=== PATIENT | male | born 1940 | race Caucasian/White ===

== ENCOUNTER 2016-08-19 10:16 | Emergency (ER) | payer MEDICARE, OTHER ==
[2016-08-19 10:47] LABS: BASOPHIL# 0.1 X 10^3uL (0.0-0.1); BASOPHILS 0.8 % (0.0-2.0); EOSINOPHILS 2.2 % (0.0-6.0); EOSINOPHILS# 0.1 X 10^3uL (0.0-0.4); HEMATOCRIT 48.7 % (42.0-54.0); HEMOGLOBIN 16.9 g/dL (14.0-18.0); MEAN CELL VOLUME 92.3 fL (80.0-100.0); MEAN CORPUS. HGB CONCENTRATION 34.6 g/dL (32.0-36.0); MEAN PLATELET VOLUME 9.6 fL (7.4-10.4); MONOCYTES 8.3 % (2.0-10.0); MONOCYTES# 0.5 X 10^3uL (0.2-1.0); NEUTROPHILS 73.7 % (54.0-75.0); NEUTROPHILS# 4.8 X 10^3uL (2.6-6.7); PLATELET COUNT 214 X 10^3uL (130-440); RED BLOOD COUNT 5.28 X 10^6uL (4.20-6.10); RED CELL DISTRIBUTION WIDTH 13.3 % (11.5-14.5); WHITE BLOOD COUNT 6.4 X 10^3uL (3.9-10.7)
[2016-08-19] MEDS ORDERED: FUROSEMIDE 20 MG/2 ML VIAL ONE (10:54)
[2016-08-19 10:58] LABS: BLOOD UREA NITROGEN 20 mg/dL (9-20); CALCIUM 9.3 mg/dL (8.4-10.2); CHLORIDE 106 mmol/L (98-107); EST GLOMERULAR FILTRATION RATE > 60 mL/min; GLUCOSE 134 mg/dL (70-100); POTASSIUM 3.7 mmol/L (3.5-5.1); SODIUM 143 mmol/L (137-145)
[2016-08-19 11:10] LABS: TROPONIN I < 0.012 ng/mL (0.00-0.034)
--- NOTE | 2016-08-19 11:47 | ER NURSING DOCUMENTATION ---
Nurse's Notes [facility] Name:Conrado Castellano Age:75 yrs Sex:Male :1940 Arrival Date:08/19/2016 Time:10:16 BedTrauma-C Private MD:No PCP, Identified Diagnosis:CHF (Congestive Heart Failure)-: Mild Presentation: 08/19 10:38 Acuity: EMIL 2 lp 10:41 Presenting complaint: Patient states: Shortness of breath and chest tightness. lp Transition of care: Home. AIR CAT ACTIVATION no other Not indicated at this time. Asprin Given Given in ED 324 mg po. 10:41 Method Of Arrival: Private Vehicle lp Triage Assessment: 10:52 General: Appears in no apparent distress, Behavior is appropriate for age. Pain: Denies lp pain. EENT: No deficits noted. Neuro: No deficits noted. Cardiovascular: Capillary refill < 3 seconds Heart tones S1 S2 Reports shortness of breath Denies lightheadedness, Rhythm is atrial fibrillation. Historical: - Allergies: No known drug Allergies; - Home Meds: 1. Lasix 20 mg oral tab 1 tab once daily 2. Eliquis 5 mg oral tab 1 tab 2 times per day for Prevention of Thromboembolism with Chronic Atrial Fibrillation 3. potassium chloride 20 mEq oral TbER 2 tabs 2 times per day for Hypokalemia Prevention 4. amlodipine 5 mg oral tab 1 tab twice a day 5. Cozaar 50 mg oral tab 1 tab 2 times per day 6. Lipitor 40 mg oral tab 1 tab once daily 7. levothyroxine 100 mcg oral cap 1 cap once daily 8. diazepam 5 mg oral tab 1 tab as needed for Insomnia 9. lorazepam 1 mg oral tab 1 tab once daily for Anxiety - PMHx: CHF; ATRIAL FIB; Hypertension; Hyperlipidemia; HYPOTHYROIDISM; ANXIETY; Insomnia; Melanoma; - PSHx: Removal of skin cancers; R wrist surgery; Cardioversion; - Tetanus: < 10 years. - Ebola Screening: : Patient negative for fever greater than or equal to 101.5 degrees Fahrenheit, and additional compatible Ebola Virus Disease symptoms. Patient denies exposure to infectious person. Patient denies travel to an Ebola-affected area in the 21 days before illness onset. . - Immunization history: Pneumococcal vaccine is up to date, Flu Vaccine < 1 year. - Social history: Smoking status: Patient states was never smoker of tobacco. Screenin:53 Infectious Disease Risk None. Abuse screen: Denies threats or abuse. Denies injuries lp from another. Nutritional screening: No deficits noted. Assessment: 10:53 See Triage Assessment done by same RN. Pain: Denies pain. Pain does not radiate. Pain lp began no pain. Vital Signs: 10:15 BP 165 / 95; Pulse 97; Resp 18; Temp 98.2(TE); Pulse Ox 89% on R/A; Weight 96.2 kg; lp Height 6 ft. 1 in. (185.42 cm); Pain 0/10; 10:26 Pulse 95 MON; Resp 21; Pulse Ox 97% ; lp 10:30 BP 158 / 82 (auto/); lp 10:56 Pulse 91 MON; Resp 20; Pulse Ox 96% ; lp 11:00 BP 131 / 65 (auto/); lp 11:31 Pulse 97 MON; Resp 16; Pulse Ox 96% ; lp 11:34 BP 151 / 84 (auto/); lp 10:15 Body Mass Index 27.98 (96.20 kg, 185.42 cm) lp [place] Coma Score: 11:00 Eye Response: spontaneous(4). Verbal Response: oriented(5). Motor Response: obeys cd commands(6). Total: 15. ED Course: 10:17 Patient arrived in ED. ds 10:17 No PCP, Identified is Private Physician. ds 10:30 Inserted peripheral IV: 20 gauge in right antecubital area and blood collected. lp 10:34 Basim Soliz MD is Attending Physician. cd 10:37 Yamile Laura, RN is Primary Nurse. lp 10:38 Triage completed. lp 10:[address] Soliz notified. lp 10:53 Valuables Remains with patient Patient has correct armband on for positive lp identification. Placed in gown. Bed in low position. Call light in reach. Side rails up X 1. Cardiac Monitoring On for Nurse Monitoring only. Pulse Ox - RN Monitoring Only NIBP On - RN Monitoring Only. 10:54 Oxygen Oxygen administration via nasal cannula @ 2L/min. lp 11:07 Port Xray Completed. dnn 11:31 Rich Guerin MD is Referral Physician. cd 11:45 Discontinued IV bleeding controlled, pressure dressing applied. lp 12:15 EKG attached lp Administered Medications: 10:40 Drug: Aspirin Chewable Tablet 324 mg; Route: PO; lp 11:45 Follow up: Response: No adverse reaction; No change in condition lp 10:40 Drug: Lasix 20 mg; Route: IVP; Site: right antecubital; lp 11:45 Follow up: Response: No adverse reaction lp Output: 11:43 Urine: 350ml (Voided); Total: 350ml. lp Outcome: 11:32 Discharge ordered by . winnie 11:43 Discharged to home ambulatory. lp 11:43 Condition: good 11:43 Instructed on discharge instructions, follow up and referral plans. medication usage. 11:46 Patient left the ED. lp 08/20 13:40 Discharge F/U Call: Unable to reach: left voicemail: Signatures: Yamile Laura RN RN rut Patricio, Analia, Basim Gayle MD MD cd Norman, David dnn Janzen, Sarah
--- NOTE | 2016-08-19 11:47 | ER PHYSICIAN DOCUMENTATION ---
Physician Documentation [facility] Name:Conrado Castellano Age:75 yrs Sex:Male :1940 Arrival Date:08/19/2016 Time:10:16 BedTrauma-C Private MD:No PCP, Identified ED PhysicianBasim Soliz Disposition: 08/19 11:30 Chart complete. cd 11:31 Critical Care: not applicable. cd Disposition: 08/19/16 11:32 Discharged to Home/Self Care. Impression: CHF (Congestive Heart Failure) - : Mild. - Condition is Good. - Discharge Instructions: CHF, General. - Prescriptions for Potassium Chloride 20 meq Oral - take 1 packet by ORAL route once daily 1 packet in 6 (six) ounces of water or juice; Take after meal; 3 packet. - Medical Reconciliation form form. - Follow up: Rich Guerin MD; When: 4- 6 days; Reason: Recheck today's complaints, Continuance of care. - Problem is an acute exacerbation. - Symptoms have improved. - Notes: Take Lasix 40mg by mouth every day for 3 days. Take K-Lyte 20 meq by mouth every day for three days. Follow up with Dr. Rich Guerin in 3 - 4 days for recheck. HPI: 10:20 This 75 yrs old Male presents to ER via Private Vehicle with complaints of cd SOB and ankle swelling. 10:20 The patient has shortness of breath at rest, with light activity, that occurred at cd home, and the patient has a history of CHF, was recently reduced from Lasix 40 mg PO per day to 20 mg PO per day by Dr. Guerin., Diver Assistant.. Onset: The symptom(s)/episode began/occurred acutely, yesterday. Duration: The symptoms are continuous, and are unchanged since they started. The patient's shortness of breath is aggravated by supine position, is alleviated by sitting up. Associated signs and symptoms: Pertinent negatives: chest pain, productive cough, diaphoresis, fever, hemoptysis, nausea, vomiting. Severity of symptoms: At their worst the symptoms were mild in the emergency department the symptoms are unchanged. Risk Factors Risk factors for coronary artery disease include: A family history of coronary artery disease. A history of high cholesterol. A history of hypertension. The patient has experienced similar episodes in the past. Historical: - Allergies: No known drug Allergies; - Home Meds: 1. Lasix 20 mg oral tab 1 tab once daily 2. Eliquis 5 mg oral tab 1 tab 2 times per day for Prevention of Thromboembolism with Chronic Atrial Fibrillation 3. potassium chloride 20 mEq oral TbER 2 tabs 2 times per day for Hypokalemia Prevention 4. amlodipine 5 mg oral tab 1 tab twice a day 5. Cozaar 50 mg oral tab 1 tab 2 times per day 6. Lipitor 40 mg oral tab 1 tab once daily 7. levothyroxine 100 mcg oral cap 1 cap once daily 8. diazepam 5 mg oral tab 1 tab as needed for Insomnia 9. lorazepam 1 mg oral tab 1 tab once daily for Anxiety - PMHx: CHF; ATRIAL FIB; Hypertension; Hyperlipidemia; HYPOTHYROIDISM; ANXIETY; Insomnia; Melanoma; - PSHx: Removal of skin cancers; R wrist surgery; Cardioversion; - Tetanus: < 10 years. - Ebola Screening: : Patient negative for fever greater than or equal to 101.5 degrees Fahrenheit, and additional compatible Ebola Virus Disease symptoms. Patient denies exposure to infectious person. Patient denies travel to an Ebola-affected area in the 21 days before illness onset. . - Immunization history: Pneumococcal vaccine is up to date, Flu Vaccine < 1 year. - Social history: Smoking status: Patient states was never smoker of tobacco. ROS: 11:00 Eyes: Negative for injury, pain, redness, discharge, blurry vision and loss of vision. cd ENT: Negative for injury, pain, epistaxis and discharge. Neck: Negative for injury, pain, stiffness and swelling. Abdomen/GI: Negative for abdominal pain, nausea, vomiting, diarrhea, constipation, distension, melena, hematochezia and hematemesis. Back: Negative for injury, pain or muscle spasms. 11:00 : Negative for injury, bleeding, discharge, swelling, dysuria, frequency or urgency. cd 11:00 Constitutional: Positive for poor PO intake, Negative for body aches, chills, fever. 11:00 Cardiovascular: Positive for edema, orthopnea, palpitations, Negative for chest pain. 11:00 Respiratory: Positive for orthopnea, shortness of breath, Negative for cough, hemoptysis, pleurisy, wheezing. 11:00 MS/extremity: Positive for swelling, of the Bilateral ankles. 11:00 Skin: Negative for acute changes. 11:00 Neuro: Negative for acute changes. 11:00 All other systems are negative. Exam: Head/Face: Normocephalic, atraumatic. ENT: Nares patent. No nasal discharge, no septal abnormalities noted. Tympanic membranes are normal and external auditory canals are clear. Oropharynx with no redness, swelling, or masses, exudates, or evidence of obstruction, uvula midline. Mucous membranes moist. Neck: Trachea midline, no thyromegaly or masses palpated, and no cervical lymphadenopathy. Supple, full range of motion without nuchal rigidity, or vertebral point tenderness. No Meningismus. Chest/axilla: Normal chest wall appearance and motion. Nontender with no deformity. No lesions are appreciated. Abdomen/GI: Soft, non-tender, with normal bowel sounds. No distension or tympany. No guarding or rebound. No evidence of tenderness throughout. Back: No spinal tenderness. No costovertebral tenderness. Full range of motion. Skin: Warm, dry with normal turgor. Normal color with no rashes, no lesions, and no evidence of cellulitis. 11:00 Neuro: Awake and alert, GCS 15, oriented to person, place, time, and situation. cd Cranial nerves II-XII grossly intact. Motor strength 5/5 in all extremities. Sensory grossly intact. Cerebellar exam normal. Normal gait. 11:00 Constitutional: The patient appears alert, awake, non-diaphoretic, non-toxic, well developed, well nourished, obese. 11:00 Cardiovascular: Rate: normal, actual rate is 95 bpm, Rhythm: irregularly irregular, Pulses: no pulse deficits are appreciated, Heart sounds: normal, Edema: 2+ edema to level of left ankle and right ankle, JVD: is not appreciated. 11:00 Respiratory: the patient does not display signs of respiratory distress, Respirations: normal, no acute changes, labored breathing, is not present, prolonged exhalation, is not present, shallow respirations, are not present, Breath sounds: rales, that are mild, are located in both bases, rhonchi, are not appreciated, wheezing, is not appreciated. 11:00 Musculoskeletal/extremity: 2+ edema to ankles. cd Vital Signs: 10:15 BP 165 / 95; Pulse 97; Resp 18; Temp 98.2(TE); Pulse Ox 89% on R/A; Weight 96.2 kg; lp Height 6 ft. 1 in. (185.42 cm); Pain 0/10; 10:26 Pulse 95 MON; Resp 21; Pulse Ox 97% ; lp 10:30 BP 158 / 82 (auto/); lp 10:56 Pulse 91 MON; Resp 20; Pulse Ox 96% ; lp 11:00 BP 131 / 65 (auto/); lp 11:31 Pulse 97 MON; Resp 16; Pulse Ox 96% ; lp 11:34 BP 151 / 84 (auto/); lp 10:15 Body Mass Index 27.98 (96.20 kg, 185.42 cm) lp [place] Coma Score: 11:00 Eye Response: spontaneous(4). Verbal Response: oriented(5). Motor Response: obeys cd commands(6). Total: 15. MDM: 10:34 Patient medically screened. cd 10:35 Data interpreted: Pulse oximetry: on room air is 89 %. Interpretation: hypoxia. Plan: cd O2 by NC applied. 10:45 Differential diagnosis: Anemia CHF exacerbation, Myocardial Infarction pneumonia, cd pulmonary edema, Pulmonary Embolism. Antibiotic administration: Not indicated, the patient does not have an appreciated infiltrate. 11:15 Data reviewed: vital signs, nurses notes, old medical records, lab test result(s), EKG, cd radiologic studies, and as a result, I will continue to observe the patient, give Lasix 20 mg IV. 11:30 Counseling: I had a detailed discussion with the patient and/or guardian regarding: the cd historical points, exam findings, and any diagnostic results supporting the discharge/admit diagnosis, lab results, radiology results, the need for outpatient follow up, for a recheck, for a referral to a specialist, a web marketing strategist, to return to the emergency department if symptoms worsen or persist or if there are any questions or concerns that arise at home. Response to treatment: the patient's symptoms have markedly improved after treatment, the patient's condition has returned to base line, the patient is now symptom free, and as a result, I will discharge patient. 12:15 EKG attached lp 08/19 10:50 Order name: CBC AUTO DIF, MDIF/RMOR IF IND; Complete Time: 11:23 EDMS 08/19 11:22 Interpretation: Normal. cd 08/19 11:11 Order name: BASIC METABOLIC PANEL; Complete Time: 11:23 EDMS 08/19 11:23 Interpretation: Normal Except: GLUCOSE 134; Hyperglycemia. cd 08/19 11:11 Order name: MAGNESIUM; Complete Time: 11:23 EDMS 08/19 11:23 Interpretation: Normal. cd 08/19 11:11 Order name: BNP,NT-PRO; Complete Time: 11:23 EDMS 08/19 11:23 Interpretation: Abnormal: BNP,NT-PRO 2760; elevated. cd 08/19 11:11 Order name: TROPONIN I; Complete Time: 11:23 EDMS 08/19 11:23 Interpretation: Normal. cd 08/19 18:43 Order name: CHEST; SINGLE VIEW 99513; Complete Time: 19:46 EDMS 08/19 19:46 Interpretation: Normal Except: See Radiologist Report. cd 08/19 10:35 Order name: 12-lead EKG; Complete Time: 10:39 cd 08/19 10:35 Order name: Continuous Cardiac Monitoring; Complete Time: 10:39 cd 08/19 10:35 Order name: I & O; Complete Time: 10:39 cd 08/19 10:35 Order name: Iv Saline Lock; Complete Time: 10:39 cd 08/19 10:35 Order name: Oxygen; Complete Time: 10:39 cd 08/19 10:35 Order name: Pulse Ox Continuous; Complete Time: 10:39 cd Dispensed Medications: 10:40 Drug: Aspirin Chewable Tablet 324 mg; Route: PO; lp 11:45 Follow up: Response: No adverse reaction; No change in condition lp 10:40 Drug: Lasix 20 mg; Route: IVP; Site: right antecubital; lp 11:45 Follow up: Response: No adverse reaction lp Signatures: Yamile Laura RN RN lp Basim Soliz MD MD
--- NOTE | 2016-08-19 17:45 | RADIOLOGY REPORT ---
A limited single portable view of the chest is compared with prior film dated . The cardiac silhouette is now at the upper limits of normal to mildly enlarged. The pulmonary vasculature is unremarkable. The lung german are clear. No infiltrate, fluid or pneumothorax is seen. IMPRESSION: Cardiac silhouette is now at the upper limits of normal to mildly enlarged. MTDD
== END 2016-08-19 11:47 | disposition home or self-care (01) ==
LOC: ER 10:16
DX: I50.20 Unspecified systolic (congestive) heart failure (principal); R06.02 Shortness of breath; R60.0 Localized edema; I48.91 Unspecified atrial fibrillation; I49.3 Ventricular premature depolarization; I44.4 Left anterior fascicular block; I10 Essential (primary) hypertension; E78.00 Pure hypercholesterolemia, unspecified; Z79.899 Other long term (current) drug therapy; Z79.01 Long term (current) use of anticoagulants
CPT/HCPCS: 71010; 80048; 83735; 83880; 84484; 85025; 93005; 93010; 96374; 99284; 99285; J1940

== ENCOUNTER 2016-09-08 09:02 | Emergency (ER) | payer MEDICARE, OTHER ==
[2016-09-08 09:42] LABS: BASOPHIL# 0.1 X 10^3uL (0.0-0.1); BASOPHILS 0.6 % (0.0-2.0); EOSINOPHILS 0.5 % (0.0-6.0); HEMATOCRIT 47.7 % (42.0-54.0); HEMOGLOBIN 16.6 g/dL (14.0-18.0); LYMPHOCYTES 7.6 % (20.0-40.0); LYMPHOCYTES# 0.7 X 10^3uL (0.8-3.8); MEAN CELL VOLUME 92.1 fL (80.0-100.0); MEAN CORPUS. HGB CONCENTRATION 34.9 g/dL (32.0-36.0); MEAN CORPUSCULAR HEMOGLOBIN 32.1 pg (29.0-35.0); MEAN PLATELET VOLUME 9.7 fL (7.4-10.4); MONOCYTES 7.8 % (2.0-10.0); MONOCYTES# 0.7 X 10^3uL (0.2-1.0); NEUTROPHILS 83.5 % (54.0-75.0); NEUTROPHILS# 7.8 X 10^3uL (2.6-6.7); PLATELET COUNT 219 X 10^3uL (130-440); RED BLOOD COUNT 5.18 X 10^6uL (4.20-6.10); WHITE BLOOD COUNT 9.3 X 10^3uL (3.9-10.7)
[2016-09-08 10:13] LABS: BLOOD UREA NITROGEN 19 mg/dL (9-20); CALCIUM 9.5 mg/dL (8.4-10.2); CHLORIDE 98 mmol/L (98-107); EST GLOMERULAR FILTRATION RATE > 60 mL/min; GLUCOSE 132 mg/dL (70-100); MAGNESIUM 1.8 mg/dL (1.6-2.3); POTASSIUM 3.7 mmol/L (3.5-5.1); SODIUM 138 mmol/L (137-145)
[2016-09-08 11:08] LABS: TROPONIN I < 0.012 ng/mL (0.00-0.034)
[2016-09-08] MEDS ORDERED: FUROSEMIDE 40 MG/4 ML VIAL ONE (11:40)
--- NOTE | 2016-09-08 12:11 | ER NURSING DOCUMENTATION ---
Nurse's Notes [facility] Name:Conrado Castellano Age:75 yrs Sex:Male :1940 Arrival Date:09/08/2016 Time:09:02 BedTrauma-C Private MD: Diagnosis:CHF (Congestive Heart Failure) Presentation: 09/08 09:11 Acuity: EMIL 2 lc 09:12 Presenting complaint: Patient states: C/O SOB FOR LAST 2 DAYS. SL COUGH WITH PHLEM. NO lc FEVER, CHEST PAIN, PALPITATIONS. Transition of care: Home. Notified ED Physician of patient's arrival and CC. 09:12 Method Of Arrival: Private Vehicle Triage Assessment: 09:16 General: Appears uncomfortable, Behavior is anxious, cooperative. Pain: Denies pain. lc Neuro: No deficits noted. Level of Consciousness is awake, alert, Oriented to person, place, time, event. Cardiovascular: Rhythm is atrial fibrillation. Cardiovascular: NO PEDAL EDEMA. Respiratory: Reports shortness of breath at rest since 2 DAYS air hunger Onset: The symptoms/episode began/occurred gradually, the patient has mild shortness of breath. Respiratory: Breath sounds are diminished bilaterally. Derm: Skin is pale. Historical: - Allergies: No known drug Allergies; - Home Meds: 1. Lasix 20 mg oral tab 1 tab once daily 2. Eliquis 5 mg oral tab 1 tab 2 times per day for Prevention of Thromboembolism with Chronic Atrial Fibrillation 3. potassium chloride 20 mEq oral TbER 2 tabs 2 times per day for Hypokalemia Prevention 4. amlodipine 5 mg oral tab 1 tab twice a day 5. Cozaar 50 mg oral tab 1 tab 2 times per day 6. Lipitor 40 mg oral tab 1 tab once daily 7. levothyroxine 100 mcg oral cap 1 cap once daily 8. diazepam 5 mg oral tab 1 tab as needed for Insomnia 9. lorazepam 1 mg oral tab 1 tab once daily for Anxiety - PMHx: CHF; ATRIAL FIB; HYPERTENSION; Hyperlipidemia; HYPOTHYROIDISM; ANXIETY; Insomnia; Melanoma; CHF (Congestive Heart Failure) - : Mild(August 19, 2016); - PSHx: Cardioversion; - Tetanus: < 10 years. - Ebola Screening: : Patient denies travel to an Ebola-affected area in the 21 days before illness onset. No symptoms or risks identified at this time. . - Immunization history: Pneumococcal vaccine status is unknown, Flu Vaccine unknown Pneumococcal vaccine is up to date. - Social history: Smoking status: Patient states was never smoker of tobacco. Screenin:19 Infectious Disease Risk None. Abuse screen: Denies threats or abuse. Denies injuries lc from another. Nutritional screening: No deficits noted. Assessment: 09:19 See Triage Assessment done by same RN. Cardiovascular: Rhythm is atrial fibrillation. lc 10:44 Reassessment: Patient states feeling better. Patient states symptoms have improved. lc Patient appears in no apparent distress at this time. FEELS BETTER ON 02, NO C/O, MONITOR IN AFIB IN THE 80'S. Vital Signs: 09:18 BP 142 / 69; Pulse 76; Resp 18; Temp 98.1; Pulse Ox 88% on R/A; Weight 99.79 kg; Height lc 6 ft. 1 in. (185.42 cm); Pain 0/10; 09:29 Weight 96.98 kg (M); lc 09:49 BP 141 / 73 (auto/); lc 09:51 Pulse 87 MON; Resp 19; Pulse Ox 95% ; lc 10:30 BP 134 / 68 (auto/); lc 10:31 Pulse 72 MON; Resp 10; Pulse Ox 94% ; lc 12:09 Pulse Ox 92% on R/A; rs 09:29 Body Mass Index 28.21 (96.98 kg, 185.42 cm) ED Course: 09:03 Patient arrived in ED. dp 09:11 Yissel Thompson, RN is Primary Nurse. lc 09:11 Triage completed. lc 09:15 Charlie Alfonso MD is Attending Physician. tl1 09:19 Valuables Remains with patient Patient has correct armband on for positive lc identification. Placed in gown. Bed in low position. Call light in reach. Side rails up X2. Cardiac Monitoring On for Nurse Monitoring only. Pulse Ox - RN Monitoring Only NIBP On - RN Monitoring Only. 09:19 Inserted peripheral IV: 20 gauge in right antecubital area and blood collected. Oxygen lc Oxygen administration via nasal cannula @ 2L/min. 09:36 Patient moved to radiology. pm1 10:38 EKG attached 11:48 Rich Guerin MD is Referral Physician. tl1 12:10 Discontinued lock intact, bleeding controlled, pressure dressing applied, No rs redness/swelling at site. Administered Medications: 11:33 Drug: Lasix 40 mg; Route: IVP; Rate: 10 mg/min; Infused Over: 4 mins; Site: right rs antecubital; 12:09 Follow up: Response: No adverse reaction; Marked relief of symptoms rs Output: 12:09 Urine: 800ml (Voided); Total: 800ml. Outcome: 11:49 Discharge ordered by . [email or web address] 12:10 Discharged to home ambulatory. rs 12:10 Condition: improved 12:10 Discharge instructions given to patient, family, Instructed on discharge instructions, follow up and referral plans. Demonstrated understanding of instructions. 12:10 IV D/Salty 12:11 Patient left the ED. rs 09/09 10:23 Discharge F/U Call: Spoke with: spouse with permission of patient. Signatures: Yecenia Ryder RN RN rs Yissel Thompson RN RN Teofilo Moreno pm1 Charlie Alfonso MD MD tl1 Adelia Chandler Sheree Marina
--- NOTE | 2016-09-08 12:11 | ER PHYSICIAN DOCUMENTATION ---
Physician Documentation [facility] Name:Conrado Castellano Age:75 yrs Sex:Male :1940 Arrival Date:09/08/2016 Time:09:02 BedTrauma-C Private MD: Charlie Farnsworth Disposition: 09/08 11:00 Critical Care: not applicable. tl1 09/09 21:12 Chart complete. tl1 Disposition: 09/08/16 11:49 Discharged to Home/Self Care. Impression: CHF (Congestive Heart Failure). - Condition is Good. - Discharge Instructions: CHF, General. - Medical Reconciliation form form. - Follow up: Rich Forbes MD; When: Tomorrow; Reason: Recheck today's complaints. - Problem is new. - Symptoms have improved. - Notes: TAKE 40 MG OF LASIX AGAIN AT ABOUT 5 PM TONIGHT. MAKE SURE TO SEE DR FORBES OR ONE OF THE OTHER CARDIOLOGISTS TOMORROW. HPI: 09/08 09:10 This 75 yrs old Male presents to ER via Private Vehicle with complaints of tl1 Shortness Of Breath. 11:25 Gradually progressive JARAMILLO, PND, orthopnea over the last week or so, especially the last tl1 2 nights where he has slept poorly. He is mildly winded at rest,and develops significant JARAMILLO just walking to the bathroom. Denies f/c/s. No change in chronic, rare, intermittent cough. No chest pain or pressure. No hemoptysis. Feels like his pants are getting tighter, but he does not have a scale at home.. Historical: - Allergies: No known drug Allergies; - Home Meds: 1. Lasix 20 mg oral tab 1 tab once daily 2. Eliquis 5 mg oral tab 1 tab 2 times per day for Prevention of Thromboembolism with Chronic Atrial Fibrillation 3. potassium chloride 20 mEq oral TbER 2 tabs 2 times per day for Hypokalemia Prevention 4. amlodipine 5 mg oral tab 1 tab twice a day 5. Cozaar 50 mg oral tab 1 tab 2 times per day 6. Lipitor 40 mg oral tab 1 tab once daily 7. levothyroxine 100 mcg oral cap 1 cap once daily 8. diazepam 5 mg oral tab 1 tab as needed for Insomnia 9. lorazepam 1 mg oral tab 1 tab once daily for Anxiety - PMHx: CHF; ATRIAL FIB; HYPERTENSION; Hyperlipidemia; HYPOTHYROIDISM; ANXIETY; Insomnia; Melanoma; CHF (Congestive Heart Failure) - : Mild(August 19, 2016); - PSHx: Cardioversion; - Tetanus: < 10 years. - Ebola Screening: : Patient denies travel to an Ebola-affected area in the 21 days before illness onset. No symptoms or risks identified at this time. . - Immunization history: Pneumococcal vaccine status is unknown, Flu Vaccine unknown Pneumococcal vaccine is up to date. - Social history: Smoking status: Patient states was never smoker of tobacco. ROS: 11:33 Respiratory: Positive for dyspnea on exertion. tl1 Exam: 09:15 Constitutional: The patient appears alert, awake, non-diaphoretic, non-toxic, well tl1 developed, well groomed, well nourished. 09:15 Head/face: Exam is negative for acute changes. 09:15 Eyes: Exam is negative for acute changes. 09:15 ENT: Mouth: is normal, Oral mucosa: pink and intact, moist, Posterior pharynx: is normal, swelling, is not appreciated, erythema, is not appreciated. 09:15 Neck: External neck: is normal, ROM/movement: is normal, is supple, Lymph nodes: no appreciated lymphadenopathy. 09:15 Cardiovascular: Rate: normal, Rhythm: regular, Heart sounds: normal, Edema: is not appreciated. 09:15 Respiratory: the patient does not display signs of respiratory distress, Respirations: normal, Breath sounds: are normal, no rales, rhonchi, no stridor, no wheezing. 09:15 Musculoskeletal/extremity: Exam is negative for acute changes. tl1 09:15 Skin: Exam negative for acute changes, rash. 09:15 Neuro: Exam negative for acute changes. Vital Signs: 09:18 BP 142 / 69; Pulse 76; Resp 18; Temp 98.1; Pulse Ox 88% on R/A; Weight 99.79 kg; Height lc 6 ft. 1 in. (185.42 cm); Pain 0/10; 09:29 Weight 96.98 kg (M); lc 09:49 BP 141 / 73 (auto/); lc 09:51 Pulse 87 MON; Resp 19; Pulse Ox 95% ; lc 10:30 BP 134 / 68 (auto/); lc 10:31 Pulse 72 MON; Resp 10; Pulse Ox 94% ; lc 12:09 Pulse Ox 92% on R/A; rs 09:29 Body Mass Index 28.21 (96.98 kg, 185.42 cm) MDM: 09:15 Patient medically screened. tl1 10:38 EKG attached lc 10:58 Counseling: I had a detailed discussion with the patient and/or guardian regarding: the tl1 historical points, exam findings, and any diagnostic results supporting the discharge/admit diagnosis, lab results. ECG:. 11:00 Differential diagnosis: Anemia Bronchitis CHF exacerbation, Myocardial Infarction tl1 pneumonia, pulmonary edema, Pulmonary Embolism. Antibiotic administration: Not indicated. The patient's pulmonary embolism risk score was calculated as follows: No Risks (0 Pts). Data reviewed: and as a result, I will discharge patient. Data interpreted: lunchroom monitor: Pulse oximetry:. Response to treatment: the patient's symptoms have mildly improved after treatment, and as a result, I will discharge patient. 09/08 10:26 Order name: BASIC METABOLIC PANEL; Complete Time: 11:25 EDMS 09/08 10:54 Interpretation: Normal Except: GLUCOSE 132. tl1 09/08 10:26 Order name: MAGNESIUM; Complete Time: 11:25 EDMS 09/08 10:54 Interpretation: Normal: MAGNESIUM 1.8. tl1 09/08 10:29 Order name: CBC AUTO DIF, MDIF/RMOR IF IND; Complete Time: 11:25 EDMS 09/08 10:55 Interpretation: WHITE BLOOD COUNT 9.3; HEMOGLOBIN 16.6; HEMATOCRIT 47.7; PLATELET COUNT tl1 219; NEUTROPHILS 83.5; LYMPHOCYTES 7.6. 09/08 11:09 Order name: BNP,NT-PRO; Complete Time: 11:25 EDMS 09/09 21:14 Interpretation: Abnormal: BNP,NT-PRO 5280. tl1 09/08 11:09 Order name: TROPONIN I; Complete Time: 11:25 EDMS 09/09 21:14 Interpretation: Normal: TROPONIN I < 0.012. tl1 09/08 14:09 Order name: CXR 2V [id number]; Complete Time: 21:15 EDMS 09/08 09:39 Order name: Oxygen; Complete Time: 09:39 EC: Rate is 104 beats/min. Rhythm is regular, A fib. QRS interval is prolonged at 113 msec. tl1 QT interval is prolonged at 546 msec. No Q waves. T waves are Normal. No ST changes noted. Clinical impression: Atrial Fibrillation and with LVH, LAFB, PROLONGED QTc of 546. Interpreted by me. Reviewed by me. Dispensed Medications: 11:33 Drug: Lasix 40 mg; Route: IVP; Rate: 10 mg/min; Infused Over: 4 mins; Site: right rs antecubital; 12:09 Follow up: Response: No adverse reaction; Marked relief of symptoms rs Signatures: Yecenia Ryder RN RN rs Coleman, Linda, RN RN lc Leigh, Tom, MD MD tl1
--- NOTE | 2016-09-08 13:26 | RADIOLOGY REPORT ---
Two views of the chest are compared with 08/19/2016. The cardiac silhouette is stable at the upper limits of normal to mildly enlarged. Pulmonary vasculature appears unremarkable. Lung german are clear. IMPRESSION: Stable cardiac silhouette at the upper limits of normal to mildly enlarged. MTDD
== END 2016-09-08 12:11 | disposition home or self-care (01) ==
LOC: ER 09:02
DX: I50.20 Unspecified systolic (congestive) heart failure (principal); R06.00 Dyspnea, unspecified; R06.01 Orthopnea; I48.91 Unspecified atrial fibrillation; I44.4 Left anterior fascicular block; I45.81 Long QT syndrome; I10 Essential (primary) hypertension; Z79.899 Other long term (current) drug therapy; Z79.01 Long term (current) use of anticoagulants
CPT/HCPCS: 71020; 80048; 83735; 83880; 84484; 85025; 93005; 96374; 99284; 99285; J1940

== ENCOUNTER 2016-09-22 11:54 | Emergency (ER) | payer MEDICARE, OTHER ==
[2016-09-22 12:20] LABS: HEMATOCRIT 51.8 % (42.0-54.0); HEMOGLOBIN 17.7 g/dL (14.0-18.0); MEAN CORPUSCULAR HEMOGLOBIN 32.4 pg (29.0-35.0); RED BLOOD COUNT 5.46 X 10^6uL (4.20-6.10); WHITE BLOOD COUNT 6.7 X 10^3uL (3.9-10.7)
[2016-09-22] MEDS ORDERED: NORMAL SALINE 500 ML IV ONE (12:20)
[2016-09-22 12:21] LABS: BASOPHILS 0.6 % (0.0-2.0); LYMPHOCYTES 17.5 % (20.0-40.0); LYMPHOCYTES# 1.2 X 10^3uL (0.8-3.8); MEAN CORPUS. HGB CONCENTRATION 34.2 g/dL (32.0-36.0); MONOCYTES 8.9 % (2.0-10.0); MONOCYTES# 0.6 X 10^3uL (0.2-1.0); NEUTROPHILS# 4.8 X 10^3uL (2.6-6.7); PLATELET COUNT 238 X 10^3uL (130-440); RED CELL DISTRIBUTION WIDTH 12.8 % (11.5-14.5)
[2016-09-22 12:22] LABS: EOSINOPHILS# 0.1 X 10^3uL (0.0-0.4)
[2016-09-22 12:29] LABS: BLOOD UREA NITROGEN 19 mg/dL (9-20); CALCIUM 9.5 mg/dL (8.4-10.2); CHLORIDE 102 mmol/L (98-107); EST GLOMERULAR FILTRATION RATE > 60 mL/min; GLUCOSE 167 mg/dL (70-100); MAGNESIUM 1.8 mg/dL (1.6-2.3); POTASSIUM 3.3 mmol/L (3.5-5.1); SODIUM 142 mmol/L (137-145)
[2016-09-22 12:41] LABS: TROPONIN I < 0.012 ng/mL (0.00-0.034)
[2016-09-22] MEDS ORDERED: POTASSIUM EFF 25 MEQ TABLET ONE (15:00)
--- NOTE | 2016-09-22 16:07 | ER NURSING DOCUMENTATION ---
Nurse's Notes [facility] Name:Conrado Castellano Age:75 yrs Sex:Male :1940 Arrival Date:09/22/2016 Time:11:54 BedTrauma-A Private MD: Diagnosis:CHF (Congestive Heart Failure)-: with Akinesis of inferior Wall and EF = 20% (Wll need Cardiac Cath per Dr. Guerin);Transient Ischemic Attack (TIA)-: Possible;Atrial Fibrillation;Hypokalemia Presentation: 09/22 11:56 Acuity: EMIL 2 rh 12:00 Presenting complaint: Patient states: L arm weakness. Transition of care: Home. cb Notified ED Physician of patient's arrival and CC Dr. Soliz notified. 12:00 Method Of Arrival: Private Vehicle cb Triage Assessment: 11:56 General: Appears in no apparent distress, well groomed, Behavior is cooperative. cb 11:56 Pain: Denies pain. EENT: No deficits noted. Neuro: Level of Consciousness is awake, cb alert, Oriented to person, place, time, event. Cardiovascular: Rhythm is atrial fibrillation With PVC's. Respiratory: Airway is patent Trachea midline Respiratory effort is even, unlabored, Respiratory pattern is regular, symmetrical, Breath sounds are clear bilaterally. GI: Reports tolerance of fluids, tolerance of food. : No deficits noted. Derm: No deficits noted. Musculoskeletal: Reports weakness in left arm since for one week . Historical: - Allergies: No known drug Allergies; - Home Meds: 1. Lasix 20 mg oral tab 1 tab once daily 2. Eliquis 5 mg oral tab 1 tab 2 times per day for Prevention of Thromboembolism with Chronic Atrial Fibrillation 3. potassium chloride 20 mEq oral TbER 2 tabs 2 times per day for Hypokalemia Prevention 4. amlodipine 5 mg oral tab 1 tab twice a day 5. Cozaar 50 mg oral tab 1 tab 2 times per day 6. Lipitor 40 mg oral tab 1 tab once daily 7. levothyroxine 100 mcg oral cap 1 cap once daily 8. diazepam 5 mg oral tab 1 tab as needed for Insomnia 9. lorazepam 1 mg oral tab 1 tab once daily for Anxiety - PMHx: CHF; ATRIAL FIB; HYPERTENSION; Hyperlipidemia; HYPOTHYROIDISM; ANXIETY; Insomnia; Melanoma; - PSHx: Cardioversion; - Tetanus: < 10 years. - Ebola Screening: : Patient negative for fever greater than or equal to 101.5 degrees Fahrenheit, and additional compatible Ebola Virus Disease symptoms. Patient denies exposure to infectious person. Patient denies travel to an Ebola-affected area in the 21 days before illness onset. No symptoms or risks identified at this time. . - Immunization history: Flu Vaccine < 1 year. - Social history: Smoking status: Patient states was never smoker of tobacco. Screenin:06 Infectious Disease Risk None. Abuse screen: Denies threats or abuse. Denies injuries cb from another. Nutritional screening: No deficits noted. Assessment: 15:07 Reassessment: patient is aware that he is being transferred to [facility] via ambulance . cb Vital Signs: 11:59 BP 138 / 75; Pulse 95; Resp 22; Temp 98.7(O); Pulse Ox 92% on R/A; Weight 96.16 kg; cb Height 6 ft. 1 in. (185.42 cm); Pain 0/10; 12:14 Pulse 99 MON; Resp 23; cb 12:16 BP 133 / 84 (auto/); cb 12:30 BP 120 / 76 (auto/); cb 12:34 Pulse 74 MON; Resp 20; Pulse Ox 92% ; cb 12:44 Pulse 64 MON; Resp 19; Pulse Ox 89% ; cb 12:45 BP 132 / 74 (auto/); cb 13:40 BP 142 / 70 (auto/); cb 13:44 Pulse 67 MON; Resp 12; Pulse Ox 95% ; cb 13:45 BP 138 / 74 (auto/); cb 13:49 Pulse 69 MON; Resp 12; Pulse Ox 94% ; cb 14:43 BP 135 / 70 (auto/); cb 14:44 Pulse 81 MON; Resp 13; Pulse Ox 94% ; cb 14:45 BP 126 / 75 (auto/); cb 14:49 Pulse 78 MON; Resp 19; Pulse Ox 90% ; cb 15:00 BP 127 / 71 (auto/); cb 15:04 Pulse 80 MON; Resp 19; Pulse Ox 95% ; cb 15:45 BP 126 / 76 (auto/); cb 15:49 Pulse 80 MON; Resp 14; Pulse Ox 94% ; cb 15:54 Pulse 84 MON; Resp 22; Pulse Ox 92% ; cb 11:59 Body Mass Index 27.97 (96.16 kg, 185.42 cm) cb Tobin Coma Score: 15:14 Eye Response: spontaneous(4). Verbal Response: oriented(5). Motor Response: obeys cd commands(6). Total: 15. NIH Stroke Scale Scores: 12:10 NIHSS Score: 0 cb ED Course: 11:55 Patient arrived in ED. ds 11:56 Triage completed. rh 11:58 Delicia Comer, RN is Primary Nurse. cb 12:00 Patient moved to MRI. ms 12:00 Inserted peripheral IV: 22 gauge in left antecubital area and blood collected. cb 12:00 Labs drawn. (by ED staff). Sent per order to lab. cb 12:03 EKG done. (by ED staff). Reviewed by Basim Soliz MD. cb 12:04 Basim Soliz MD is Attending Physician. cd 12:27 EKG attached cb 12:43 Valuables Remains with patient Patient has correct armband on for positive cb identification. Placed in gown. Bed in low position. Call light in reach. Side rails up X2. poultry hatchery manager on. Pulse ox on. NIBP on. Diet: Patient is NPO. 13:40 Patient moved back from MRI. ms 13:51 RN escorted patient out of department to Cardiac clinic. cb Administered Medications: 14:48 Drug: K-Lyte Effervescent Tablet 25 mEq; Route: PO; cb 14:50 Follow up: Response: No adverse reaction cb Point of Care Testing: Blood Glucose: 12:50 Blood Glucose: 173 mg/dL; cb Ranges: Outcome: 15:21 ER care complete, transfer ordered by MD. cd 16:00 Transferred: Patient will be transferred to: [facility]. Facility cb Acceptance Time: September 22, 2016 at 15:00 Patient's face sheet was faxed to accepting facility. Face Sheet included patient's name, address, age, gender, contact information and insurance information. Patient will be transported by: [facility] ground. Report called to: PJ Costa in ED Nurse and Physician Charting and Notes were sent to Accepting Facility. All tests and/or procedures with results, if applicable, were sent to accepting facility. 16:00 Condition: good 16:00 Discharge Assessment: Patient awake, alert and oriented x 3. No cognitive and/or functional deficits noted. Patient verbalized understanding of disposition instructions. 16:00 Instructed on need for transfer Demonstrated understanding of instructions. 16:06 Patient left the ED. cb NIH Stroke Scale - NIH Stroke Score Date: 09/22/2016 Time: 12:10 Total Score = 0 1a. Level of Consciousness (LOC) - 0(Alert) 1b. Level of Consciousness (LOC) (Year & Age) - 0(Both) 1c. LOC Commands (Open & Closes Eyes/Career Services Assistant) - 0(Both) 2. Best Gaze (Lateral Gaze Paresis) - 0(Normal) 3. Visual Field Loss - 0(No visual loss) 4. Facial Palsy - 0(Normal) 5a. Left Arm: Motor (10-second hold) - 0(No drift) 5b. Right Arm: Motor (10-second hold) - 0(No drift) 6a. Left Leg: Motor (5-second hold ? always test supine) - 0(No drift) 6b. Right Leg: Motor (5-second hold ? always test supine) - 0(No drift) 7. Limb Ataxia (finger/nose & heel/mayo ? test with eyes open) - 0(Absent) 8. Sensory Loss (pinprick arms/legs/face) - 0(Normal) 9. Best Language: Aphasia (description/naming/reading) - 0(No aphasia) 10. Dysarthria (speech clarity ? read or repeat words) - 0(Normal) 11. Extinction and Inattention (visual/tactile/auditory/spatial/personal) - 0(No abnormality) Initials: cb Signatures: Delicia Comer, RN RN cb Srot, Analia, Reg Reg Basim Chowdary MD MD cd Strickland, Mary ms Hofsess, Rachel
--- NOTE | 2016-09-22 16:07 | ER PHYSICIAN DOCUMENTATION ---
Physician Documentation [facility] Name:Conrado Castellano Age:75 yrs Sex:Male :1940 Arrival Date:09/22/2016 Time:11:54 BedTrauma-A Private MD: Basim Jimenez Disposition: 09/22/16 15:21 Transfer ordered to [facility]. Diagnosis are CHF (Congestive Heart Failure) - : with Akinesis of inferior Wall and EF = 20% (Wll need Cardiac Cath per Dr. Guerin), Transient Ischemic Attack (TIA) - : Possible, Atrial Fibrillation, Hypokalemia. - Reason for transfer: Higher level of care. - Accepting physician is Niranjan Motley MD, [employer] Summer School Coordinator. - Condition is Fair. - Problem is new. - Symptoms are unchanged. COBRA Form completed? Yes Transfer - Mode of Transportation Ambulance HPI: 09/22 12:00 This 75 yrs old Male presents to ER via Private Vehicle with complaints of cd Transient Left Arm Weakness. 12:00 The patient's problem is reported as weakness, in the left upper extremity. Onset: The cd symptom(s)/episode began/occurred gradually, 7 day(s) ago, and improved today, now completely normal. It has been transient, on and off for 7 days. He has a history of Atrial Fibrillation on Eliquis for anticoagulation. He denies headaches, nausea, vomiting, speech changes, facial droop or any neurologic symptoms at this time. He was seen by me 7 days ago for CHF. His Lasix was increased from 40 mg by mouth per day to 80 mg per day for three days. He reports he has continued the Lasix 80 mg by mouth every day for the entire week. He had an appointment to see Dr. 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 He now presents with the transient left arm weakness but no other symptoms. He denies chest pain or discomfort, SOB or ankle swelling.. Duration: The episodes are intermittent. Context: symptoms became apparent 7 days ago, occurred at home. Associated signs and symptoms: Pertinent positives: weakness, Pertinent negatives: abdominal pain, ataxia, chest pain, confusion, diaphoresis, headache, lightheadedness, nausea, numbness, palpitations, shortness of breath, vomiting. Severity of symptoms: At their worst the symptoms were mild in the emergency department the symptoms have resolved. The patient has not experienced similar symptoms in the past. Historical: - Allergies: No known drug Allergies; - Home Meds: 1. Lasix 20 mg oral tab 1 tab once daily 2. Eliquis 5 mg oral tab 1 tab 2 times per day for Prevention of Thromboembolism with Chronic Atrial Fibrillation 3. potassium chloride 20 mEq oral TbER 2 tabs 2 times per day for Hypokalemia Prevention 4. amlodipine 5 mg oral tab 1 tab twice a day 5. Cozaar 50 mg oral tab 1 tab 2 times per day 6. Lipitor 40 mg oral tab 1 tab once daily 7. levothyroxine 100 mcg oral cap 1 cap once daily 8. diazepam 5 mg oral tab 1 tab as needed for Insomnia 9. lorazepam 1 mg oral tab 1 tab once daily for Anxiety - PMHx: CHF; ATRIAL FIB; HYPERTENSION; Hyperlipidemia; HYPOTHYROIDISM; ANXIETY; Insomnia; Melanoma; - PSHx: Cardioversion; - Tetanus: < 10 years. - Ebola Screening: : Patient negative for fever greater than or equal to 101.5 degrees Fahrenheit, and additional compatible Ebola Virus Disease symptoms. Patient denies exposure to infectious person. Patient denies travel to an Ebola-affected area in the 21 days before illness onset. No symptoms or risks identified at this time. . - Immunization history: Flu Vaccine < 1 year. - Social history: Smoking status: Patient states was never smoker of tobacco. ROS: 15:13 Eyes: Negative for injury, pain, redness, discharge, blurry vision and loss of vision. cd ENT: Negative for injury, pain, epistaxis and discharge. Cardiovascular: Negative for chest pain, palpitations, edema and pleuritic pain. Respiratory: Negative for shortness of breath, dyspnea on exertion, cough, sputum production, wheezing, hemoptysis and pleuritic chest pain. Abdomen/GI: Negative for abdominal pain, nausea, vomiting, diarrhea, constipation, distension, melena, hematochezia and hematemesis. Back: Negative for injury, pain or muscle spasms. 15:13 Skin: Negative for injury, rash, itching and discoloration. cd 15:13 Neuro: Positive for weakness, of the left arm, Negative for altered mental status, dizziness, gait disturbance, headache, loss of consciousness, seizure activity, speech changes, syncope, near syncope, tingling, visual changes. 15:13 All other systems are negative. Exam: Head/Face: Normocephalic, atraumatic. Eyes: Pupils equal round and reactive to light, extra-ocular motions intact. Lids and lashes normal. Conjunctiva and sclera are non-icteric and not injected. Cornea within normal limits. Periorbital areas with no swelling, redness, or edema. ENT: Nares patent. No nasal discharge, no septal abnormalities noted. Tympanic membranes are normal and external auditory canals are clear. Oropharynx with no redness, swelling, or masses, exudates, or evidence of obstruction, uvula midline. Mucous membranes moist. Neck: Trachea midline, no thyromegaly or masses palpated, and no cervical lymphadenopathy. Supple, full range of motion without nuchal rigidity, or vertebral point tenderness. No Meningismus. Chest/axilla: Normal chest wall appearance and motion. Nontender with no deformity. No lesions are appreciated. Respiratory: Lungs have equal breath sounds bilaterally, clear to auscultation and percussion. No rales, rhonchi or wheezes noted. No increased work of breathing, no retractions or nasal flaring. Abdomen/GI: Soft, non-tender, with normal bowel sounds. No distension or tympany. No guarding or rebound. No evidence of tenderness throughout. Back: No spinal tenderness. No costovertebral tenderness. Full range of motion. Skin: Warm, dry with normal turgor. Normal color with no rashes, no lesions, and no evidence of cellulitis. MS/ Extremity: Pulses equal, no cyanosis. Neurovascular intact. Full, normal range of motion. 15:14 Neuro: Awake and alert, GCS 15, oriented to person, place, time, and situation. cd Cranial nerves II-XII grossly intact. Motor strength 5/5 in all extremities. Sensory grossly intact. Cerebellar exam normal. Normal gait. 15:14 Constitutional: The patient appears alert, awake, non-diaphoretic, non-toxic, well developed, well nourished, anxious. 15:14 Cardiovascular: Rate: normal, actual rate is 69 bpm, Rhythm: regular, Pulses: no pulse deficits are appreciated, Heart sounds: normal, Edema: is not appreciated. 15:14 Respiratory: the patient does not display signs of respiratory distress, Respirations: normal, no acute changes, Breath sounds: are normal, clear throughout, no rales. 15:14 Neuro: Orientation: is normal, to person, place & time. Mentation: is normal, Memory: is normal, Cranial nerves: CN II- XII are normal as tested, Cerebellar function: is grossly normal, normal finger to nose testing, heel to mayo testing is normal, Motor: is normal, Sensation: is normal, Gait: is steady, Deep tendon reflexes are normal. Vital Signs: 11:59 BP 138 / 75; Pulse 95; Resp 22; Temp 98.7(O); Pulse Ox 92% on R/A; Weight 96.16 kg; cb Height 6 ft. 1 in. (185.42 cm); Pain 0/10; 12:14 Pulse 99 MON; Resp 23; cb 12:16 BP 133 / 84 (auto/); cb 12:30 BP 120 / 76 (auto/); cb 12:34 Pulse 74 MON; Resp 20; Pulse Ox 92% ; cb 12:44 Pulse 64 MON; Resp 19; Pulse Ox 89% ; cb 12:45 BP 132 / 74 (auto/); cb 13:40 BP 142 / 70 (auto/); cb 13:44 Pulse 67 MON; Resp 12; Pulse Ox 95% ; cb 13:45 BP 138 / 74 (auto/); cb 13:49 Pulse 69 MON; Resp 12; Pulse Ox 94% ; cb 14:43 BP 135 / 70 (auto/); cb 14:44 Pulse 81 MON; Resp 13; Pulse Ox 94% ; cb 14:45 BP 126 / 75 (auto/); cb 14:49 Pulse 78 MON; Resp 19; Pulse Ox 90% ; cb 15:00 BP 127 / 71 (auto/); cb 15:04 Pulse 80 MON; Resp 19; Pulse Ox 95% ; cb 15:45 BP 126 / 76 (auto/); cb 15:49 Pulse 80 MON; Resp 14; Pulse Ox 94% ; cb 15:54 Pulse 84 MON; Resp 22; Pulse Ox 92% ; cb 11:59 Body Mass Index 27.97 (96.16 kg, 185.42 cm) cb NIH Stroke Scale Scores: 12:10 NIHSS Score: 0 cb [place] Coma Score: 15:14 Eye Response: spontaneous(4). Verbal Response: oriented(5). Motor Response: obeys cd commands(6). Total: 15. MDM: 12:04 Patient medically screened. 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 Interpretation: normal. 12:22 Differential diagnosis: CVA, TIA, metabolic disorder, Embolic TIA, CHF. cd 12:27 EKG attached cb 14:45 Data reviewed: vital signs, nurses notes, old medical records, lab test result(s), EKG, cd radiologic studies, MRI, and as a result, I will *Transfer Patient administer IV fluids, NS bolus, administer potassium, orally. 14:55 Other consultation: Echocardiogram revealed worsening EF from 50 - 55% on previous Echo cd to 20% today. Patient has Inferior Wall Akinesis. Dr. Rich Guerin recommends transfer to [facility] for Cardiac Catheterization.. ED course: The DI department was unable to transmit the MRI to the [facility]. We sent the MRI on CD's with the patient and I called Dr. Niranjan Motley to let him know he will have to have a [facility] Radiologist read the MRI.. 15:15 Physician consultation: Niranjan Motley MD was called at 15:03, was contacted at 15:07, regarding admission, to telemetry, consult, patient's condition, need to evaluate the patient as soon as possible, and will see patient in unit, shortly, later today, after a discussion of the case, a recommendation for transfer for higher level of care is made. 15:17 Neurological re-evaluation: normal neurological exam including cranial nerves, cd orientation, mentation, motor and sensory exam, cerebellar testing, GCS normal, and normal gait. 15:18 Counseling: I had a detailed discussion with the patient and/or guardian regarding: the cd historical points, exam findings, and any diagnostic results supporting the discharge/admit diagnosis, lab results, the need to transfer to another facility, [facility] not [facility] required specialist. 09/22 12:22 Order name: CBC AUTO DIF, MDIF/RMOR IF IND; Complete Time: 12:44 EDMS 09/22 12:44 Interpretation: Normal. cd 09/22 12:42 Order name: BASIC METABOLIC PANEL; Complete Time: 12:44 EDMS 09/22 12:44 Interpretation: Normal Except: POTASSIUM 3.3; GLUCOSE 167; Hypokalemia, Hyperglycemia. 09/22 12:42 Order name: MAGNESIUM; Complete Time: 12:44 EDMS 09/22 12:44 Interpretation: Normal. 09/22 12:42 Order name: BNP,NT-PRO; Complete Time: 12:44 EDMS 09/22 12:44 Interpretation: Abnormal: BNP,NT-PRO 3890; elevated. 09/22 12:42 Order name: TROPONIN I; Complete Time: 12:44 EDMS 09/22 12:44 Interpretation: Normal. 09/22 16:47 Order name: BRAIN W/WO CONTRAST [id number]; Complete Time: 07:14 EDMS 09/24 07:14 Interpretation: Normal Except: No acute CVA or TIA. See Radiologist Report. 09/22 12:05 Order name: 12-lead EKG; Complete Time: 12:43 cd 09/22 12:05 Order name: Continuous Cardiac Monitoring; Complete Time: 12:43 cd 09/22 12:05 Order name: I & O; Complete Time: 12:43 09/22 12:05 Order name: NIH Stroke Scale; Complete Time: 12:43 cd 09/22 12:05 Order name: NPO; Complete Time: 12:43 cd 09/22 12:05 Order name: Pulse Ox Continuous; Complete Time: 12:43 09/22 12:05 Order name: Accucheck; Complete Time: 12:43 cd 09/22 12:05 Order name: Elevate HOB 30 degrees; Complete Time: 12:43 09/22 12:05 Order name: Iv Saline Lock; Complete Time: 12:22 cd Dispensed Medications: 14:48 Drug: K-Lyte Effervescent Tablet 25 mEq; Route: PO; cb 14:50 Follow up: Response: No adverse reaction cb Point of Care Testing: Blood Glucose: 12:50 Blood Glucose: 173 mg/dL; cb Ranges: Critical Glucose Levels:Adult <50 mg/dl or >400 mg/dl <40 mg/dl or >180 mg/dl NIH Stroke Scale - NIH Stroke Score Date: 09/22/2016 Time: 12:10 Total Score = 0 1a. Level of Consciousness (LOC) - 0(Alert) 1b. Level of Consciousness (LOC) (Year & Age) - 0(Both) 1c. LOC Commands (Open & Closes Eyes/Hemotherapist) - 0(Both) 2. Best Gaze (Lateral Gaze Paresis) - 0(Normal) 3. Visual Field Loss - 0(No visual loss) 4. Facial Palsy - 0(Normal) 5a. Left Arm: Motor (10-second hold) - 0(No drift) 5b. Right Arm: Motor (10-second hold) - 0(No drift) 6a. Left Leg: Motor (5-second hold ? always test supine) - 0(No drift) 6b. Right Leg: Motor (5-second hold ? always test supine) - 0(No drift) 7. Limb Ataxia (finger/nose & heel/mayo ? test with eyes open) - 0(Absent) 8. Sensory Loss (pinprick arms/legs/face) - 0(Normal) 9. Best Language: Aphasia (description/naming/reading) - 0(No aphasia) 10. Dysarthria (speech clarity ? read or repeat words) - 0(Normal) 11. Extinction and Inattention (visual/tactile/auditory/spatial/personal) - 0(No abnormality) Initials: cb Signatures: Delicia Comer, PJ RN Basim Caba MD MD cd
--- NOTE | 2016-09-22 16:45 | MRI REPORT ---
HISTORY: Acute onset weakness with shortness of breath. Left upper extremity neural deficit. TECHNIQUE: Multiplanar multisequence MRI of the abdomen was performed according to protocol without and followin g the administration of IV contrast. The patient received 15 cc Magnevist. Results were communicated to the referring care provider concerning these findings at the time of dic tation. FINDINGS: There is no prior relevant study available for comparison. The ventricles and basal cisterns are normal in size and configuration for age. Mild ex vacuo dilatat ion is noted. There is no mass effect or midline shift. Diffusion images show no focal restricted diffusion to suggest acute cerebrovascular accident. Normal flow-voids are seen within the anterior and posterior circulations. Following the administration of gadolinium, there are no abnormally enhancing intra-axial or extra-ax ial masses. Prominent sulcal pattern is seen at the vertex. T2 FLAIR images show mild subcortical and periventric ular white matter changes, a nonspecific finding, yet most consistent with chronic small vessel ische horace disease in a patient of this age. Gradient echo images show no extra-axial fluid collections. The orbits and sinuses are intact. IMPRESSION: 1. No acute cerebrovascular accident or mass effect. 2. No abnormally enhancing intra-axial or extra-axial masses. 3. Age-appropriate atrophic and chronic small vessel ischemic change. Final Electronic Signature: This report was electronically signed by Asim Lang MD on 09/22/2016 3 :48 PM. shumes /
== END 2016-09-22 16:07 | disposition short-term general hospital (02) ==
LOC: ER 11:54
DX: I50.20 Unspecified systolic (congestive) heart failure (principal); I51.7 Cardiomegaly; I48.91 Unspecified atrial fibrillation; R53.1 Weakness; E87.6 Hypokalemia; G83.24 Monoplegia of upper limb affecting left nondominant side; R73.9 Hyperglycemia, unspecified; I49.3 Ventricular premature depolarization; I44.4 Left anterior fascicular block; I10 Essential (primary) hypertension; Z79.01 Long term (current) use of anticoagulants; Z79.899 Other long term (current) drug therapy; Z74.3 Need for continuous supervision
CPT/HCPCS: 70553; 80048; 83735; 83880; 84484; 85025; 93005; 93010; 93306; 99285; A0425; A0427; J7040